=== PATIENT | female | born 1970 | race Caucasian/White ===

== ENCOUNTER 2023-07-20 10:23 | Outpatient (OUT) | payer OTHER, SELFPAY ==
[2023-07-20 11:38] LABS: TSH W/ REFLEX FT4 1.511 uIU/mL (0.358-3.740)
== END 2023-07-20 10:24 | disposition home or self-care (01) ==
LOC: LAB 10:27
PROVIDERS: Visit Provider Nurse Practitioner
DX: R00.2 Palpitations (principal)
CPT/HCPCS: 36415; 84443